=== PATIENT | female | born 2000 | race American Indian/Alaskan Native ===

== ENCOUNTER 2021-11-02 13:30 | Emergency (ER) | payer MEDICAID ==
[2021-11-02 13:42] VITALS: BP 104/72
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
== END 2021-11-02 16:09 | disposition home or self-care (01) ==
LOC: ED 13:30
DX: O9A.212 Injury, poisoning and certain other consequences of external causes complicating pregnancy, second trimester (principal); S46.912A Strain of unspecified muscle, fascia and tendon at shoulder and upper arm level, left arm, initial encounter; S43.492A Other sprain of left shoulder joint, initial encounter; Z79.899 Other long term (current) drug therapy; Z3A.16 16 weeks gestation of pregnancy; V89.2XXA Person injured in unspecified motor-vehicle accident, traffic, initial encounter; Y93.89 Activity, other specified; Y92.488 Other paved roadways as the place of occurrence of the external cause; Y99.8 Other external cause status
CPT/HCPCS: 76805; 99284